=== PATIENT | male | born 1965 ===

== ENCOUNTER 2024-09-17 06:18 | Day surgery (SDC) | payer OTHER ==
[2024-09-17] MEDS ORDERED: fentaNYL CITRATE 50 MCG/ML AMPUL IV ONE (09:15)
[2024-09-17] MEDS ORDERED: MIDAZOLAM HCL 2 MG/2 ML VIAL IV ONE (09:15)
[2024-09-17] MEDS ORDERED: DIPHENHYDRAMINE HCL 50 MG/ML VIAL 1ML IV ONE (09:15)
== END 2024-09-17 11:00 | disposition home or self-care (01) ==
LOC: AMB-ENDOS 06:18
PROVIDERS: ATTEND Surgery
DX: D12.2 Benign neoplasm of ascending colon (principal); K63.5 Polyp of colon; K62.5 Hemorrhage of anus and rectum; K64.8 Other hemorrhoids